=== PATIENT | female | born 1990 | race Caucasian/White ===

== ENCOUNTER 2025-05-13 10:03 | Day surgery (SDC) | payer OTHER ==
[~2025-05-13] VITALS: Ht 165.1 cm; Wt 63.8 kg
[~2025-05-13 10:03] MED LIST: LIDOCAINE 2% 100 MG/5 ML SDV (FOR ANES.) As Ordered ONE; ONDANSETRON 4MG/2ML VIAL As Ordered ONE; ROCURONIUM BROMIDE 50MG/5ML VIAL As Ordered ONE; SUGAMMADEX SODIUM 200 MG/2 ML VIAL As Ordered ONE; dexAMETHasone 4 MG/ML 1 ML VIAL As Ordered ONE; dexAMETHasone 4 MG/ML 1 ML VIAL IV ONE
[2025-05-13] MEDS ORDERED: MIDAZOLAM INJ 2 MG/2 ML VIAL As Ordered ONE (10:37)
[2025-05-13] MEDS: LR 1,000 ML IV SCH (10:40)
[2025-05-13] MEDS: OXYMETAZOLINE 0.05% NASAL SPRAY As Ordered ONE (11:43)
[2025-05-13] MEDS: AMPICILLIN SOD/SULBACTAM SOD 3 GM in D5W MINI-BAG 100 ML IV ONE (11:51)
[2025-05-13] MEDS ORDERED: ACETAMINOPHEN 1000MG/100ML IV BAG As Ordered ONE (11:54)
[2025-05-13] MEDS: CHLORHEXIDINE GLUCONATE 0.12% 15 ML UDC As Ordered ONE (12:07)
[2025-05-13] MEDS ORDERED: LR 1,000 ML IV SCH (12:40)
[2025-05-13] MEDS ORDERED: MEPERIDINE 25 MG/ML 1 ML VIAL IV PRN (12:40)
[2025-05-13] MEDS: HYDROMORPHONE HCL 0.5 MG/0.5 ML SYRINGE IV PRN (13:06)
[2025-05-13] MEDS: ONDANSETRON 4MG/2ML VIAL IV PRN (13:06)
[2025-05-13 14:09] VITALS: BP 128/70; TEMP 97.8; O2SAT 98
== END 2025-05-13 14:10 | disposition home or self-care (01) ==
LOC: M SDC 10:03
PROVIDERS: ATTEND Dentist
DX: K02.9 Dental caries, unspecified (principal); F40.232 Fear of other medical care; F17.210 Nicotine dependence, cigarettes, uncomplicated
CPT/HCPCS: 81025; 88300; D7210; D7310; D7311; J0131; J0295; J0666; J1100; J1171; J2250; J2405; J3010